=== PATIENT | female | born 1935 | race Caucasian/White ===

== ENCOUNTER 2016-12-08 14:28 | Emergency (ER) | payer MEDICARE ==
[2016-12-08 14:39] VITALS: BP 118/55
[2016-12-08] MEDS ORDERED: Acetaminophen TAB* 325 MG PO ONE (14:46)
--- NOTE | 2016-12-08 15:11 | UC ---
HPI Febrile Illness - HPI Summary HPI Summary: 81 yo female with the onset of fever and chills last PM T max 102 nausea and vomiting back pain mild STUBBS some lower abd pain no cough no CP no SOB - History of Current Complaint Chief Complaint: UCGeneralIllness Time Seen by Provider: 12/08/16 14:41 Hx Obtained From: Patient Onset/Duration: Started Hours Ago Timing: Constant Temperature: 101.8 F Initial Severity: Moderate Current Severity: Moderate Pain Intensity: 6 Pain Scale Used: 0-10 Numeric Aggravating Factors: Nothing Associated Signs and Symptoms: Chills, Headache, Myalgia, Nausea, Vomiting - Allergy/Home Medications Allergies/Adverse Reactions: Allergies Allergy/AdvReac Type Severity Reaction Status Date / Time Cefazolin [From [facility]] Allergy Hives Verified 12/08/16 14:39 Home Medications: Home Medications Aspirin [Aspirin 81 MG TAB] 81 mg PO DAILY 12/08/16 [History Confirmed 12/08/16] Losartan TAB* [Cozaar TAB*] 25 mg PO DAILY 12/08/16 [History Confirmed 12/08/16] Rosuvastatin Calcium [Crestor] 5 mg PO EVERY OTHER DAY 12/08/16 [History Confirmed 12/08/16] PMH/Surg Hx/FS Hx/Imm Hx Previously Healthy: Yes Cardiovascular History: Reports: Hx Hypertension, Hx Valvular Heart Disease GI History: Reports: Hx Gall Bladder Disease - Cancer History Hx Hematologic Symptoms: No Hx Chemotherapy: No Hx Radiation Therapy: No Hx Palliative Cancer Treatment: No - Surgical History Surgery Procedure, Year, and Place: Cardiac valve replacement. Hysterectomy. Vaginal prolasped. left hip replacement. gall bladder surgery Infectious Disease History: No Infectious Disease History: Denies: Traveled Outside the [place] in Last 30 Days - Family History Known Family History: Positive: Hypertension - Social History Alcohol Use: None Substance Use Type: Reports: None Smoking Status (MU): Never Smoked Tobacco Review of Systems Constitutional: Fever, Chills Skin: Negative Eyes: Negative ENT: Negative Respiratory: Negative Cardiovascular: Negative Gastrointestinal: Abdominal Pain Genitourinary: Negative Motor: Negative Neurovascular: Negative Musculoskeletal: Myalgia Neurological: Negative Psychological: Negative All Other Systems Reviewed And Are Negative: Yes Physical Exam Triage Information Reviewed: Yes Appearance: Well-Appearing, No Pain Distress, Well-Nourished Vital Signs: Initial Vital Signs Temp 98.9 F 12/08/16 14:33 Pulse 85 12/08/16 14:33 Resp 18 12/08/16 14:33 BP 118/55 12/08/16 14:33 Pulse Ox 96 12/08/16 14:33 Vital Signs Reviewed: Yes Eyes: Positive: Conjunctiva Clear ENT: Positive: Hearing grossly normal. Negative: Nasal congestion, Nasal drainage, Trismus, Muffled/hoarse voice Neck: Positive: Supple, Nontender Respiratory: Positive: Lungs clear, Normal breath sounds, No respiratory distress, No accessory muscle use Cardiovascular: Positive: RRR, Murmur:Sys:Grade _?_/ Abdomen Description: Positive: Nontender, No Organomegaly, Soft. Negative: CVA Tenderness (R), CVA Tenderness (L) Bowel Sounds: Positive: Present Neurological: Positive: Alert Psychological Exam: Normal Skin Exam: Normal Course/Dx - Course Course Of Treatment: I spoke to the [facility] ([facility] [employer]). PT refuses EMS transfer and has signed AMA - Diagnoses Clinic Provider Diagnoses: fever of uncertain cause Discharge - Discharge Plan Condition: Stable Disposition: TRANS HIGHER LVL OF CARE FAC Referrals: Theo Macdonald MD [Primary Care Provider] - Additional Instructions: you need to go to the ER for a higher level of care
== END 2016-12-08 15:18 | disposition short-term general hospital (02) ==
LOC: UCCORT 14:28
DX: R50.9 Fever, unspecified (principal); R11.2 Nausea with vomiting, unspecified; R51 Headache; R10.30 Lower abdominal pain, unspecified; I10 Essential (primary) hypertension; Z95.2 Presence of prosthetic heart valve; Z90.49 Acquired absence of other specified parts of digestive tract; Z90.710 Acquired absence of both cervix and uterus; Z96.642 Presence of left artificial hip joint; Z88.1 Allergy status to other antibiotic agents
CPT/HCPCS: 81003; 99202; A9270-GY; G0463